=== PATIENT | female | born 1990 | race Caucasian/White ===

== ENCOUNTER 2018-08-12 09:53 | Outpatient (CLI) | payer BC ==
--- NOTE | 2018-08-12 11:47 | RAD ---
TWO VIEWS LUMBAR SPINE: HISTORY: Sciatica. HLAB-27 positive. FINDINGS: AP and lateral views lumbar spine demonstrate levoscoliosis seen. The patient has 4 [id number] lumbar vertebrae. 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 Small anterior osteophytes seen at the T12-L1 and L 1-2 levels. No definite evidence of squaring of the vertebral bodies seen to suggest ankylosing spon dylitis. Disk spaces are well maintained. The patient has spina bifida occulta at the S1 level. IMPRESSION: T12-L1 and L1-2 changes of spondylosis. No acute abnormality is seen. POS: [facility]
--- NOTE | 2018-08-12 11:48 | RAD ---
CERVICAL SPINE FOUR VIEWS: HISTORY: Neck pain, HLA-B 27. TECHNIQUE: AP, lateral, open-mouth odontoid, and submental vertex views of the cervical spine are obtained. FINDINGS: The images demonstrate cervical spine alignment to be unremarkable. The disk space is well maintaine d. There is no evidence of anterolisthesis or retrolisthesis seen. There is no evidence of masses o r lesions seen. There is no evidence of disk space height loss seen. There is no evidence of prever tebral soft tissue swelling seen. The odontoid is unremarkable. IMPRESSION: Unremarkable four views cervical spine with no evidence of acute or chronic abnormality seen. POS: [facility]
== END 2018-08-12 09:54 | disposition home or self-care (01) ==
LOC: BICRAD 09:53
PROVIDERS: ATTEND Internal Medicine
DX: M54.5 Low back pain (principal); M54.2 Cervicalgia; M47.816 Spondylosis without myelopathy or radiculopathy, lumbar region; M47.815 Spondylosis without myelopathy or radiculopathy, thoracolumbar region
CPT/HCPCS: 72040; 72100

== ENCOUNTER 2023-06-27 12:59 | Outpatient (CLI) | payer BC | END 2023-06-27 13:00 | disposition home or self-care (01) | LOC: BICRAD 12:59 | PROVIDERS: ATTEND Internal Medicine | DX: R05.9 Cough, unspecified (principal) | CPT/HCPCS: 71046 ==